=== PATIENT | female | born 1975 | race Caucasian/White ===

== ENCOUNTER 2018-03-05 17:19 | Emergency (ER) | payer BC, SELFPAY ==
[2018-03-05 17:22] VITALS: BP 149/96; PULSE 105; RESP 20; TEMP 37; O2SAT 97; BMI 46.7
--- NOTE | 2018-03-05 17:40 | EKG12_ITS ---
Test Reason : CP Blood Pressure : / mmHG Vent. Rate : 087 BPM Atrial Rate : 087 BPM P-R Int : 146 ms QRS Dur : 076 ms QT Int : 378 ms P-R-T Axes : 055 001 031 degrees QTc Int : 454 ms Normal sinus rhythm Low voltage QRS Borderline ECG Confirmed by SOM MAC, WAYNE ([id number]), editorial specialist TRISTAN DENISE ([id number]) on 03/11/2018 9:16:44 AM Referred By: JONNY Confirmed By:WAYNE KEARNS MD
[2018-03-05] MEDS: Aspirin 81 MG TAB.CHEW 324 MG PO (17:48)
--- NOTE | 2018-03-05 18:00 | RAD_ITS ---
STUDY: X-RAY CHEST REASON FOR EXAM: Female, 42 years old. Chest pain. TECHNIQUE: PA and lateral views of the chest. COMPARISON: March 21, 2015. FINDINGS: Telemetry wires overlie the chest. The lungs are hyperexpanded. There is minimal bibasilar atelectasis. There is no demonstrated pleural abnormality. Normal size heart. Normal mediastinum and edgar. Normal visualized pulmonary arteries. There is atherosclerotic calcification of the aortic arch with tortuosity. Normal visualized thoracic spine. Normal visualized ribs, clavicles, and shoulders. There is no demonstrated abnormality of the visualized soft tissue structures of the upper abdomen. RAD/Chest PA and Lateral IMPRESSION: Limited inspiration with bibasilar atelectasis. There is no other interval change. Electronically Signed: Иван Castillo DO at 18:51 EDT Tel [phone], Service support ,
[2018-03-05 18:13] LABS: Absolute Lymphocyte Count 2.84 X10^3/ul (0.83-4.51); Basophil# 0.07 X10^3/uL; Basophil% 0.6 % (0-1); Eosinophil# 0.45 X10^3/uL; Eosinophils% 3.7 % (0-5); Hematocrit 42.4 % (37-47); Hemoglobin 14.6 g/dl (12.0-15.0); Lymphocyte # 2.84 X10^3/ul (4.0); Lymphocyte % 23.4 % (19-41); Mean Corp Hgb Conc 34.4 g/gl (32-36); Mean Corpuscular Hgb 29.6 pg (27.0-32.0); Mean Corpuscular Volume 85.8 fL (81-99); Mean Platelet Vol. 9.5 fl (6.2-12.0); Monocyte# 0.76 X10^3/uL; Monocyte% 6.3 % (0-10); Neutrophil # 7.96 X10^3/uL (2.7-7.7); Neutrophil % 65.7 % (47-70); Platelet Count 294 K/mm3 (150-450); RBC Distribution Width CV 14.5 % (11.6-14.6); RBC Distribution Width SD 44.6 fl (35.1-43.9); Red Blood Count 4.94 M/mm3 (4.2-5.4); White Blood Count 12.1 K/mm3 (4.4-11.0)
[2018-03-05 18:18] LABS: Differential Indicated SCAN CRITERIA MET; POSITIVE COUNT NO; POSITIVE DIFFERENTIAL NO; POSITIVE MORPHOLOGY YES
[2018-03-05 18:44] LABS: Platelet Estimate ADEQUATE (ADEQ); Red Cell Morphology NORM C+C NORMAL (NORM C&C); Toxic Granulation RARE
[2018-03-05 18:49] LABS: Anion Gap 10 (5-15); BUN 11 mg/dL (7-18); Calcium,Total 8.6 mg/dL (8.5-10.1); Chloride 107 mmol/L (98-107); Creatinine, Serum 0.65 mg/dL (0.55-1.02); D-Dimer Quantitative (DVT/PE) < 0.27 FEU/ug/m (0.27-0.49); EST Glomerular Filtration Rate 107 mL/min (>60); Est Glom Filt Rate - Afr Amer 130 mL/min (>60); Estimated Creatinine Clearance 94.22 ml/min; Glucose 96 mg/dL (74-106); Potassium 3.7 mmol/L (3.5-5.1); Sodium Level 139 mmol/L (136-145)
[2018-03-05 19:11] VITALS: PULSE 80; RESP 17; O2SAT 96
--- NOTE | 2018-03-05 19:13 | ED.VISSUMM ---
- ER Visit Summary Date of Service: 03/05/18 Chief Complaint: Shortness of breath and palpitations History of Present Illness: The patient is a 42 F presenting for evaluation secondary to shortness of breath and palpitations. Patient reports that over the course last 2 days she has had the above symptoms. Patient reports that she has had a sore throat for about a week, and she stated that she was having a progressive increase in her anxiety until yesterday she had an explosive episode with her family where she was screaming and yelling at them. Patient reports that she had a gradual onset after that of dizziness that she describes as unsteadiness as well as bilateral neck tightness, bilateral headache. Patient reports that this is also been associated with left shoulder and arm pain. She denies that she has any sort of visual changes numbness or weakness associated with this. Patient does endorse that she has had a mild runny nose, but denies significant cough. Shortness of breath does not have any sort of exacerbating relieving factors nor does the headache. Headache was gradual on onset, not described as thunderclap. Review of systems otherwise negative. Physical Examination: Vital signs are notable for a heart rate of 105. Obese female no acute distress. Head normocephalic atraumatic, no temporal artery tenderness. PRL, EOMI no evidence of nystagmus. Moist mucous membranes, oropharynx is clear. Neck was supple no lymphadenopathy no JVD no carotid bruits are noted. Heart was regular rate and rhythm on my exam with a heart rate of 90 no evidence of murmurs normal S1 and S2. Lungs sounds clear. Abdomen soft nontender. Peripheral pulses 2+?4, no peripheral edema, skin normal color no rash. Patient was alert and oriented cranial nerves were intact, normal strength and sensation were noted. Test Results: EKG demonstrates a sinus rate of [address] segments and normal T waves. CBC shows a mild leukocytosis of 12, chemistry unremarkable, troponin negative, d-dimer completely negative, chest x-ray shows normal-sized mediastinum and no evidence of acute pathology. Emergency Department Course and Treatment: Patient presented for evaluation secondary to shortness of breath palpitations headaches neck tightness and some dizziness. Patient's evaluation is negative as noted above. I did consider the possibility of dissection in this patient given her constellation of symptoms but I believe this to be an unlikely presentation of this as she has bilateral neck pain with no bruits and a negative d-dimer. Likewise she does not seem to have any sort of pulmonary or cardiac etiology for this. Patient will be given a course of meclizine for treatment of her dizziness. She was recommended on decongestants as she potentially has an element of an upper respiratory infection that is contributing to this. She was encouraged to follow-up with primary care, she understands signs and symptoms which to return to the emergency department. Disposition: Discharge Impression: 1. Vertigo 2. Cephalgia 3. URI This note was generated with [employer] dictation software. It may contain incorrect words, spelling, and punctuation that were not noted in review of the chart prior to signing ED Disposition - Plan for ED Patient: Disposition: Home or Assisted Living Chief Complaint: Shortness of Breath Diagnosis: Vertigo, Cephalgia, URI (upper respiratory infection) Instructions: ED Upper Resp Infec No Abx Tx Prescriptions: Meclizine HCl 25 mg PO TID #15 tab.chew Referrals: Arnulfo Vaughn MD [Primary Care Provider] - 3-5 Days
--- NOTE | 2018-03-05 19:17 | ED.DCSUM_ITS ---
- ER Visit Summary Date of Service: 03/05/18 Chief Complaint: Shortness of breath and palpitations History of Present Illness: The patient is a 42 F presenting for evaluation secondary to shortness of breath and palpitations. Patient reports that over the course last 2 days she has had the above symptoms. Patient reports that she has had a sore throat for about a week, and she stated that she was having a progressive increase in her anxiety until yesterday she had an explosive episode with her family where she was screaming and yelling at them. Patient reports that she had a gradual onset after that of dizziness that she describes as unsteadiness as well as bilateral neck tightness, bilateral headache. Patient reports that this is also been associated with left shoulder and arm pain. She denies that she has any sort of visual changes numbness or weakness associated with this. Patient does endorse that she has had a mild runny nose, but denies significant cough. Shortness of breath does not have any sort of exacerbating relieving factors nor does the headache. Headache was gradual on onset, not described as thunderclap. Review of systems otherwise negative. Physical Examination: Vital signs are notable for a heart rate of 105. Obese female no acute distress. Head normocephalic atraumatic, no temporal artery tenderness. PRL, EOMI no evidence of nystagmus. Moist mucous membranes, oropharynx is clear. Neck was supple no lymphadenopathy no JVD no carotid bruits are noted. Heart was regular rate and rhythm on my exam with a heart rate of 90 no evidence of murmurs normal S1 and S2. Lungs sounds clear. Abdomen soft nontender. Peripheral pulses 2+?4, no peripheral edema, skin normal color no rash. Patient was alert and oriented cranial nerves were intact , normal strength and sensation were noted. Test Results: EKG demonstrates a sinus rate of [address] segments and normal T waves. CBC shows a mild leukocytosis of 12, chemistry unremarkable , troponin negative, d-dimer completely negative, chest x-ray shows normal- sized mediastinum and no evidence of acute pathology. Emergency Department Course and Treatment: Patient presented for evaluation secondary to shortness of breath palpitations headaches neck tightness and some dizziness. Patient's evaluation is negative as noted above. I did consider the possibility of dissection in this patient given her constellation of symptoms but I believe this to be an unlikely presentation of this as she has bilateral neck pain with no bruits and a negative d-dimer. Likewise she does not seem to have any sort of pulmonary or cardiac etiology for this. Patient will be given a course of meclizine for treatment of her dizziness. She was recommended on decongestants as she potentially has an element of an upper respiratory infection that is contributing to this. She was encouraged to follow-up with primary care, she understands signs and symptoms which to return to the emergency department. Disposition: Discharge Impression: 1. Vertigo 2. Cephalgia 3. URI This note was generated with [employer] dictation software. It may contain incorrect words, spelling, and punctuation that were not noted in review of the chart prior to signing ED Disposition - Plan for ED Patient: Disposition: Home or Assisted Living Chief Complaint: Shortness of Breath Diagnosis: Vertigo, Cephalgia, URI (upper respiratory infection) Instructions: ED Upper Resp Infec No Abx Tx Prescriptions: Meclizine HCl 25 mg PO TID #15 tab.chew Referrals: Arnulfo Vaughn MD [Primary Care Provider] - 3-5 Days
[2018-03-05] MEDS: Meclizine HCl 25 MG Tablet PO (19:23)
== END 2018-03-05 19:29 | disposition home or self-care (01) ==
PROVIDERS: Emergency Provider Emergency Medicine; Family Provider Internal Medicine; PCP Internal Medicine
DX: R42 Dizziness and giddiness (principal); R51 Headache; J06.9 Acute upper respiratory infection, unspecified; E66.9 Obesity, unspecified; K21.9 Gastro-esophageal reflux disease without esophagitis; Z87.891 Personal history of nicotine dependence
CPT/HCPCS: 71046; 80048; 84484; 85025; 85379; 93005; 99285; A4216

== ENCOUNTER 2018-06-10 11:11 | Emergency (ER) | payer BC, SELFPAY ==
[2018-06-10 11:12] VITALS: PULSE 115; RESP 20; TEMP 36.6; O2SAT 96; BMI 47.6
--- NOTE | 2018-06-10 11:31 | CT_ITS ---
STUDY: CT ABDOMEN AND PELVIS WITHOUT CONTRAST REASON FOR EXAM: Female, 42 years old. RADIATION DOSAGE (If Supplied By Facility): CTDIvol = ( 20.77 ) mGy, DLP = ( 1110.43 ) mGycm TECHNIQUE: Transaxial images were obtained from the dome of the diaphragm to the symphysis pubis without oral contrast, and without intravenous contrast. Sagittal and coronal images were reconstructed. Individualized dose optimization techniques were used for this CT. COMPARISON: None. FINDINGS: The visualized lung bases are unremarkable. The visualized portions of the heart are within normal limits. Normal liver in size and attenuation. The gallbladder is absent no dilatation of the infrarenal or extrahepatic biliary system. The pancreas and spleen are unremarkable. Normal bilateral adrenal glands. Normal right kidney. Normal left kidney. No evidence of stone formation or hydronephrosis. Normal visualized stomach. Normal small intestine. Normal colon. The appendix is is absent. Normal abdominal aorta. Normal inferior vena cava. Normal retroperitoneum. Normal urinary bladder. Normal abdominal wall. There is evidence of spondylolysis at the level of L5 with second degree spondylolisthesis of L5 on S1 where there is narrowing of the disc space and sclerosis of the endplates CT/Abdomen/Pelvis without Cont IMPRESSION: Negative study. 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 Electronically Signed: Nayeli Loaiza, at 12:40 EST Tel , Service support ,
[2018-06-10] MEDS: Ondansetron 4 MG/2 ML Vial IV (11:41)
[2018-06-10] MEDS: Morphine 4 MG/ML Syringe IV ×2 (11:41→13:14)
[2018-06-10] MEDS: Ketorolac 30 MG/ML Syringe IV (11:41)
[2018-06-10] MEDS: 0.9% Normal Saline 1,000 ML 125 ML IV (11:46)
[2018-06-10 11:58] LABS: Absolute Lymphocyte Count 2.05 X10^3/ul (0.83-4.51); Absolute Neutrophil Count 5.9 X10^3/uL (2.0-7.7); Basophil# 0.03 X10^3/uL; Basophil% 0.3 % (0-1); Eosinophil# 0.22 X10^3/uL; Eosinophils% 2.5 % (0-5); Hematocrit 43.4 % (37-47); Hemoglobin 14.6 g/dl (12.0-15.0); Lymphocyte # 2.05 X10^3/ul (4.0); Lymphocyte % 23.3 % (19-41); Mean Corp Hgb Conc 33.6 g/gl (32-36); Mean Corpuscular Hgb 29.1 pg (27.0-32.0); Mean Corpuscular Volume 86.6 fL (81-99); Monocyte# 0.55 X10^3/uL; Monocyte% 6.3 % (0-10); Neutrophil # 5.93 X10^3/uL (2.7-7.7); Neutrophil % 67.5 % (47-70); POSITIVE COUNT NO; POSITIVE DIFFERENTIAL NO; POSITIVE MORPHOLOGY NO; Platelet Count 305 K/mm3 (150-450); RBC Distribution Width CV 13.9 % (11.6-14.6); RBC Distribution Width SD 43.8 fl (35.1-43.9); Red Blood Count 5.01 M/mm3 (4.2-5.4); White Blood Count 8.8 K/mm3 (4.4-11.0)
--- NOTE | 2018-06-10 12:00 | ED.DCSUM_ITS ---
- ER Visit Summary Date of Service: 06/10/18 Chief Complaint: [Left flank pain] History of Present Illness: The patient is a 42 F [presents to the emergency department complaint of pain that started suddenly about half an hour ago. Patient describes nausea with it. Patient complains of urinary frequency but only getting small amounts of urine out at the time. Patient is never had pain like this before. Patient rates the pain a 10 out of 10. She denies any fevers. She denies any trauma to her back. Patient was riding in a car when the pain started.] Patient states that they had some small bumps in the road and afterwards she developed the pain. Physical Examination: [HEENT-PERRLA, EOMI. Cranial nerves II through XII grossly intact. TMs clear. Mucous membranes moist. No adenopathy. Cardiovascular-regular rate and rhythm without murmur or ectopy Lungs-clear to auscultation, chest wall stable without crepitus or subcu emphysema Abdomen-normoactive bowel sounds, soft. Patient has tenderness palpation over the left lower quadrant and left flank. No rebound, rigidity, or perineal signs. Extremities-intact ?4, normal range of motion, normal pulses, atraumatic] Test Results: [CBC with differential obtained was normal. Chemistries were normal. Urinalysis was normal. CT flank showed degenerative disc disease otherwise nothing acute. No evidence of urolithiasis.] Emergency Department Course and Treatment: [Patient was medicated with morphine, Toradol, and Zofran. Patient initially had good pain relief but then her pain started to come back and she was given 4 more milligrams of morphine.] Treatment Plan: [Patient will be given a prescription for Flexeril, Naprosyn, and [place] for pain. I suspect pain may be more muscle spasm.] Disposition: [Discharged home in stable condition] Impression: [Back pain-atraumatic] This note was generated with [employer] dictation software. It may contain incorrect words, spelling, and punctuation that were not noted in review of the chart prior to signing ED Disposition - Plan for ED Patient: Chief Complaint: Flank Pain Referrals: Arnulfo Vaughn MD [Primary Care Provider] -
[2018-06-10 12:12] LABS: Anion Gap 9 (5-15); BUN 12 mg/dL (7-18); BUN/Creat Ratio 15.9 RATIO (10-20); Calcium,Total 8.6 mg/dL (8.5-10.1); Chloride 105 mmol/L (98-107); Creatinine, Serum 0.75 mg/dL (0.55-1.02); EST Glomerular Filtration Rate 90 mL/min (>60); Est Glom Filt Rate - Afr Amer 109 mL/min (>60); Estimated Creatinine Clearance 81.66 ml/min; Glucose 104 mg/dL (74-106); Potassium 3.7 mmol/L (3.5-5.1); Sodium Level 139 mmol/L (136-145)
[2018-06-10 12:45] LABS: Bacteria 0 SEEN /hpf (None Seen); Mucous, Urine 0 SEEN /hpf (<or=2+); Red Blood Cells-Urine 0 SEEN /hpf (0-5); White Blood Cells 0 SEEN /hpf (0-5)
[2018-06-10 12:48] LABS: Color, Urine Yellow (Yellow); Glucose, Dipstick Normal (Normal); Ketone-Dipstick Negative (Negative); Leukocyte Esterase-Dipstick Negative /ul (Negative); Nitrite-Dipstick Negative (Negative); Occult Blood-Urine Negative /ul (Negative); Protein-Dipstick Negative (Negative); Specific Gravity, Urine 1.005 (1.002-1.030); Urine Bilirubin Dipstick Negative (Negative); Urine Clarity Clear (Clear); Urine Urobilinogen Normal (Normal)
[2018-06-10 12:56] LABS: Squamous Epithelial Cells - UA 0-5 SEEN /hpf (5-10)
[2018-06-10 13:03] VITALS: BP 123/77; PULSE 76; RESP 16; O2SAT 96
--- NOTE | 2018-06-10 13:07 | DCINST.ED_ITS ---
ED Disposition - Plan for ED Patient: Chief Complaint: Flank Pain Instructions: ED Flank Pain Uncertain Cause, ED Neck Back Pain General Prescriptions: Hydrocodone Bitart/Apap 5-325 [[place] 5MG-325MG] 1 tab PO Q4H PRN PRN 2 Days #10 tab PRN Reason: Pain Naproxen [Naprosyn] 500 mg PO BID PRN #20 tab Cyclobenzaprine [Flexeril] 10 mg PO TID PRN #20 tab PRN Reason: Muscle Spasm Referrals: Arnulfo Vaughn MD [Primary Care Provider] - 5-7 Days
== END 2018-06-10 13:26 | disposition home or self-care (01) ==
PROVIDERS: Emergency Provider Emergency Medicine; Family Provider Internal Medicine; PCP Internal Medicine
DX: R10.9 Unspecified abdominal pain (principal); M54.9 Dorsalgia, unspecified; R11.0 Nausea
CPT/HCPCS: 74176; 80048; 81001; 85025; 96361; 96374; 96375; 96376; 99283; J7030; A4216; J2405

== ENCOUNTER 2018-10-12 19:54 | Emergency (ER) | payer BC, SELFPAY ==
[2018-10-12 19:54] VITALS: BP 135/93; PULSE 109; RESP 18; TEMP 36.9; O2SAT 95; BMI 49.9
[2018-10-12] MEDS: Morphine 4 MG/ML Syringe IV (20:38)
[2018-10-12] MEDS: diazePAM 5 MG Tablet 2.5 MG PO (20:38)
[2018-10-12] MEDS: Ondansetron 4 MG/2 ML Vial IV (20:38)
[2018-10-12 20:42] VITALS: BP 140/92; PULSE 95; RESP 18; O2SAT 95
[2018-10-12] MEDS: HYDROmorphone 1 MG/ML Syringe IV (21:44)
[2018-10-12 21:50] VITALS: BP 103/64; PULSE 91; RESP 95; O2SAT 2
--- NOTE | 2018-10-12 23:05 | ED.VISSUMM ---
- ER Visit Summary Date of Service: 10/12/18 Chief Complaint: Back pain History of Present Illness: The patient is a 42 F with history of chronic back pain. She felt a pop in her back when laying back into bed tonight and now has worsened pain. She had an injection in her back approximately 2 weeks ago. Recent x-rays revealed a 2/4 spondylolisthesis of L5 on S1. Tonight she has noted some tingling in her left leg below her knee. She states she had this in the past after she gets injections. There is no fall or direct trauma to her back tonight. Patient was brought in by EMS and had received 50 mcg of fentanyl prior to her arrival. Physical Examination: Vital signs remarkable only for heart rate of 109. Patient lying in bed. She is in no acute distress. Heart is regular rate and rhythm. Lung sounds are clear. Abdomen is soft nontender. Patient rolls to her side and back examination reveals tenderness in the lumbar spine region as well as in the bilateral paraspinals. Lower extremity examination reveals 1+ bilateral patellar reflexes. She has decreased sensation to light touch on the left leg below the knee only. She has good strength and strong distal pulses. Test Results: [] Emergency Department Course and Treatment: Patient received morphine, Zofran, and Valium. She then received a dose of Dilaudid. At this time patient states she is resting comfortably. She will be given a prescription for Percocet at home. She has Flexeril at home that she will use. She will call her back specialist tomorrow. Treatment Plan: [] Disposition: Discharge Impression: Acute back strain with muscle spasm This note was generated with [employer] dictation software. It may contain incorrect words, spelling, and punctuation that were not noted in review of the chart prior to signing ED Disposition - Plan for ED Patient: Disposition: Home or Assisted Living Instructions: ED Sprain Strain Lumbar Prescriptions: Oxycodone HCl/Acetaminophen [Percocet 5/325] 1 tablet PO Q6H PRN PRN 3 Days #12 tablet PRN Reason: Pain Referrals: Arnulfo Vaughn MD [Primary Care Provider] - Additional Instructions: Follow-up with your back doctor as discussed.
[2018-10-12] MEDS: oxyCODONE 5 MG Tablet PO (23:25)
[2018-10-12 23:27] VITALS: BP 123/87; PULSE 94; RESP 16; O2SAT 96
== END 2018-10-12 23:36 | disposition home or self-care (01) ==
PROVIDERS: Emergency Provider Emergency Medicine; Family Provider Internal Medicine; PCP Internal Medicine
DX: M62.830 Muscle spasm of back (principal); S39.012A Strain of muscle, fascia and tendon of lower back, initial encounter; X58.XXXA Exposure to other specified factors, initial encounter; Y93.9 Activity, unspecified; Y92.003 Bedroom of unspecified non-institutional (private) residence as the place of occurrence of the external cause; Y99.9 Unspecified external cause status; K21.9 Gastro-esophageal reflux disease without esophagitis; Z87.891 Personal history of nicotine dependence
CPT/HCPCS: 96374; 96375; 99284; J7030; A4216; J2405

== ENCOUNTER 2019-03-10 15:37 | Emergency (ER) | payer BC, SELFPAY ==
[2019-03-10 15:38] VITALS: BP 165/111; PULSE 118; RESP 20; TEMP 36.6; O2SAT 98; BMI 51.2
--- NOTE | 2019-03-10 15:54 | ED.VISSUMM ---
- ER Visit Summary Date of Service: 03/10/19 Chief Complaint: [Pain to right calf] History of Present Illness: The patient is a 43 F [the emergency department with pain to her right calf. Patient states that approximately noon she was on her toes cleaning when she felt a pop in her right calf and has been unable to bear weight since. Patient complains of pain radiating to her foot and all the way up to her hip. Not been on antibiotics recently.] Physical Examination: [HEENT-PERRLA, EOMI. Cranial nerves II through XII grossly intact. TMs clear. Mucous membranes moist. No adenopathy. Cardiovascular-regular rate and rhythm without murmur or ectopy Lungs-clear to auscultation, chest wall stable without crepitus or subcu emphysema Abdomen-normoactive bowel sounds, soft, nontender, no rebound or rigidity, no peritoneal signs. Extremities-intact ?4, normal range of motion, normal pulses, atraumatic. Right calf-patient has diffuse tenderness over the calf mostly the distal portion. No deformity noted in the Achilles tendon. Patient has a normal Bahena's test. She is neurovascular intact distally. There is no ecchymosis or bruising noted. No bony tenderness over the tibia or fibula.] Test Results: [None indicated] Emergency Department Course and Treatment: [Will be given a walking boot and crutches.] Treatment Plan: [Given referral to orthopedics for follow-up. Patient given a prescription for [place] for severe pain.] Disposition: [Discharged home in stable condition] Impression: [Right calf strain-possible tear] This note was generated with [employer] dictation software. It may contain incorrect words, spelling, and punctuation that were not noted in review of the chart prior to signing ED Disposition - Plan for ED Patient: Referrals: Arnulfo Vaughn MD [Primary Care Provider] -
--- NOTE | 2019-03-10 15:56 | DCINST.ED_ITS ---
ED Disposition - Plan for ED Patient: Instructions: MUSCLE STRAIN, Extremity Prescriptions: Hydrocodone Bitart/Apap 5-325 [[place] 5MG-325MG] 1 tab PO Q4H PRN PRN 2 Days #10 tab PRN Reason: Pain Prescription Printed Referrals: Arnulfo Vaughn MD [Primary Care Provider] - Kelle Lopez DO [STAFF PHYSICIAN] - 3-5 Days
== END 2019-03-10 17:18 | disposition home or self-care (01) ==
LOC: ED 16:00
PROVIDERS: Emergency Provider Emergency Medicine; Family Provider Internal Medicine; PCP Internal Medicine
DX: S86.111A Strain of other muscle(s) and tendon(s) of posterior muscle group at lower leg level, right leg, initial encounter (principal); X50.9XXA Other and unspecified overexertion or strenuous movements or postures, initial encounter; Y93.E9 Activity, other interior property and clothing maintenance; Y92.9 Unspecified place or not applicable; Y99.9 Unspecified external cause status
CPT/HCPCS: 99283

== ENCOUNTER 2019-11-30 11:21 | Emergency (ER) | payer BC, SELFPAY ==
[2019-11-30 11:22] VITALS: BP 140/100; PULSE 116; RESP 16; TEMP 37.1; O2SAT 95; BMI 53.9
--- NOTE | 2019-11-30 11:32 | ED.RN ---
PT HAS MULTIPLE COMPLAINTS, HEADACHE, FEELS LIKE MY HEAD IS GOING TO EXPLODE, JOINTS ARE TOO BIG. PAIN ALL OVER.
--- NOTE | 2019-11-30 11:38 | ED.DCSUM_ITS ---
History of Present Illness Chief Complaint: Dizziness Informant: Patient Narrative: Patient states that today she woke up with generalized pain in her joints muscles neck and head. She notes some light sensitivity. She states that she is having dizziness and feels drunk. She states that she started Lamictal recently and took her second dose last night. No fevers or rashes. No vomiting or diarrhea but she does feel nauseated. She states she has had migraines in the past but this feels different. When I asked her if she is having generalized pain she states that it is worse than pain but she does not know what the call it. Past Medical History - Allergies and Home Meds Allergies/Adverse Reactions: Allergies codeine Allergy (Verified 11/30/19 11:25) Hives Only when codeine is mixed with cough syurpe Penicillins Allergy (Verified 11/30/19 11:25) Hives [place] Allergy (Uncoded 11/30/19 11:25) Hives Primary Care Physician: Arnulfo Vaughn MD [Primary Care Provider] - Surgical History: noncontributory Smoking Status: Former smoker - Family History Maternal Family History: Reports: No pertinent history Paternal Family History: Reports: No pertinent history Review of Systems General: Denies: Chills, Fever, Sweats Eyes: Reports: - - Light sensitivity. Denies: Visual changes - bilaterally, Diplopia ENT: Denies: Rhinorrhea, Sore throat Cardiovascular: Denies: Chest pain, Palpitations Respiratory: Denies: Dyspnea, Cough, Dyspnea on exertion Gastrointestinal: Reports: Nausea. Denies: Abdominal pain, Vomiting, Diarrhea, Melena, Hematochezia Genitourinary: Denies: Dysuria, Hematuria, Frequency Musculoskeletal: Reports: Myalgias, Arthralgias, Neck pain, Back pain. Denies: Extremity Pain Skin: Denies: Rash, Wounds Neurological: Reports: Headache. Denies: Weakness, Numbness Physical Exam Vital Signs/Narrative: Vital Signs Temp Pulse Resp BP Pulse Ox 11/30/19 11:22 98.7 F 116 H 16 140/100 H 95 Inital Vital Signs reviewed: Yes General: Well nourished, Well developed, Obese, No Acute Distress Head: Normocephalic, Atraumatic Eyes: Perrl, EOMI, - - Light sensitivity ENT: Moist mucous membranes, No rhinorrhea Neck: Supple, Nontender Cardiovascular: Regular rate, Regular rhythm, No murmurs Respiratory: No distress, CTA bilaterally, Chest nontender Abdomen: Soft, Nontender, Nondistended, Normal bowel sounds Back: Nontender, Normal Inspection Extremities: Nontender, No edema Skin: Normal color, No rash Neurological: Alert, Oriented x3, Cranial nerves II-XII grossly intact, Normal Strength, Normal Sensation Psychological: - - Very dramatic affect Diagnostic/Tx/Re-eval Clinical Impression(s) from Imaging Studies Brain CT 11/30/19 11:38 IMPRESSION: No acute intracranial abnormality is seen. Partial opacification of the ethmoid sinuses bilaterally. Electronically Signed: Darshan Patton, at 12:14 EDT , Service support , - Medical Decision Making The patient received Toradol Compazine and Benadryl. She is feeling better on repeat examination. She still has light sensitivity. I do not know if this is an atypical migraine for her I suppose it is possible this could be medication reaction. I would recommend her discussing this with her psychiatrist before fi nalizing a decision on the medication. I will write for a few Toradol and Zofran at home. Return if worsening or concerns ED Disposition - Plan for ED Patient: Disposition: Home or Assisted Living Diagnosis: Headache, Myalgia, Dizziness Instructions: ED Acute Pain [facility] Prescriptions: Ketorolac [Toradol] 10 mg PO TID PRN PRN 3 Days #9 tab PRN Reason: pain Transmission Status: Pending to [id number] Ondansetron [Zofran Odt] 4 mg PO Q6H PRN PRN #10 tab PRN Reason: Nausea Transmission Status: Pending to [id number] Referrals: Arnulfo Vaughn MD [Primary Care Provider] - 3-5 Days
--- NOTE | 2019-11-30 11:38 | CT_ITS ---
STUDY: CT BRAIN WITHOUT CONTRAST REASON FOR EXAM: Female, 44 years old. HEAD, NECK AND EAR PAIN, DIZZINESS, LIGHT SENSITIVITY RADIATION DOSAGE (If Supplied By Facility): CTDIvol = ( 44.99 ) mGy, DLP = ( 779.24 ) mGycm TECHNIQUE: Transaxial CT imaging of the brain was performed without administration of intravenous contrast material. Individualized dose optimization techniques were used for this CT. COMPARISON: No relevant priors. FINDINGS: Normal soft tissue structures. Normal calvarium. Normal size ventricles and extra-axial spaces for the patient''s age. Normal white matter tracts of the cerebral hemispheres. Normal basal ganglia and thalami. Normal brainstem. Normal cerebellum. There is no intracranial hemorrhage. There are no findings of an acute ischemic infarction. Partial opacification of the ethmoid sinuses bilaterally. CT/Brain/Head without Contrast IMPRESSION: No acute intracranial abnormality is seen. Partial opacification of the ethmoid sinuses bilaterally. Electronically Signed: Darshan Patton, at 12:14 EDT , Service support ,
[2019-11-30] MEDS: proCHLORPERazine 10 MG/2 ML Vial IV (11:51)
[2019-11-30] MEDS: 0.9% Normal Saline 1,000 ML 999 ML IV (11:51)
[2019-11-30] MEDS: Ketorolac 30 MG/ML Syringe IV (11:53)
[2019-11-30] MEDS: DiphenhydrAMINE 50 MG/ML Syringe IV (11:53)
[2019-11-30 13:33] VITALS: BP 114/77; PULSE 71; RESP 18; O2SAT 99
== END 2019-11-30 13:34 | disposition home or self-care (01) ==
PROVIDERS: Emergency Provider Emergency Medicine; PCP Internal Medicine
DX: R42 Dizziness and giddiness (principal); R51 Headache; M79.10 Myalgia, unspecified site; E66.9 Obesity, unspecified; Z87.891 Personal history of nicotine dependence; Z88.0 Allergy status to penicillin
CPT/HCPCS: 70450; 96361; 96374; 96375; 99283; J7030

== ENCOUNTER → 2020-05-04 10:21 | Outpatient (CLI) | payer BC, SELFPAY | PROVIDERS: PCP Internal Medicine; Referring Provider Nurse Practitioner; Visit Provider Nurse Practitioner | DX: U07.1 COVID-19 (principal) | CPT/HCPCS: 87635; C9803; U0003 ==

== ENCOUNTER 2021-02-16 10:18 | Emergency (ER) | payer BC, SELFPAY ==
[2021-02-16 10:19] VITALS: BP 131/85; PULSE 100; RESP 20; TEMP 36.3; BMI 49.1
--- NOTE | 2021-02-16 12:15 | EDS_ITS ---
HPI History of Present Illness Chief Complaint: General Illness Narrative Narrative: 45-year-old female presenting for IV fluids secondary to decreased p.o. intake. Patient states she had gastric sleeve performed [address] Durán at [facility]. She also states she had a hiatal hernia repair. She states she was told that she would feel full after eating and drinking. Patient states she is able to get some warm food and fluids into her stomach but anything room temperature or cold she cannot tolerate. She feels early satiety. Patient has not had nausea or vomiting. She is having bowel movements. She denies feeling ill, having fevers, chills. She does admit to decreased urinary output. Patient was told by [facility] to come to the ER for IV fluids because they could not arrange outpatient fluids. She states that she does not have significant abdominal pain. [facility] Medical History Cholecystectomy planned Home Medications omeprazole 20 mg PO DAILY 03/21/15 [History Last Taken 09/30/16] albuterol sulfate [ProAir HFA] 1 puff INHALATION Q4H PRN PRN 03/22/15 [History Last Taken 03/09/15 22:00] mometasone [Nasonex] 1 spray NASAL DAILY PRN 03/22/15 [History Last Taken 03/19/15 22:00] epinephrine 0.3 mg IM X1 09/30/16 [History Last Taken Unknown] diphenhydramine HCl [Benadryl] 25 mg PO BID PRN PRN #20 capsule 10/01/16 [Rx Last Taken Unknown] azelastine 1 spray NASAL BID 10/12/18 [History Last Taken Unknown] bupropion HCl [Wellbutrin Xl] 150 mg PO DAILY 10/12/18 [History Last Taken Unknown] fluticasone propion-salmeterol [Advair 100-50 Diskus] 1 ea IH BID 10/12/18 [History Last Taken Unknown] levocetirizine 5 mg PO DAILY 10/12/18 [History Last Taken Unknown] paroxetine HCl 20 mg PO DAILY 10/12/18 [History Last Taken Unknown] triamterene-hydrochlorothiazid [Maxzide 37.5 mg-25 mg Tablet] 1 tab PO DAILY 10/12/18 [History Last Taken Unknown] gabapentin 300 mg PO TID 11/30/19 [History Last Taken Unknown] lamotrigine 25 mg PO DAILY 11/30/19 [History Last Taken Unknown] meloxicam 15 mg PO DAILY 11/30/19 [History Last Taken Unknown] methocarbamol 750 mg PO BID 11/30/19 [History Last Taken Unknown] ondansetron 4 mg PO Q6H PRN PRN #10 tab 11/30/19 [Rx Last Taken Unknown] Allergy/AdvReac Type Severity Reaction Status Date / Time codeine Allergy Hives Verified 11/30/19 11:25 Penicillins Allergy Hives Verified 11/30/19 11:25 NAL[place]ON Allergy Hives Uncoded 11/30/19 11:25 Surgical History Bariatric surgery status Social History Smoking Status: Unknown if ever smoked ROS ROS ED Constitutional Constitutional ED: Denies chills, fever(s) or sweats Eyes Eyes: Denies blurry vision or diplopia ENT ENT ED: Denies rhinorrhea or sore throat Cardiovascular Cardiovascular: Denies chest pain or palpitations Respiratory/Chest Respiratory/Chest: Denies cough or dyspnea Gastrointestinal Gastrointestinal: Reports other Details: Early satiety ; Denies nausea or vomiting Genitourinary Genitourinary ED: Reports other Details: Decreased urine output ; Denies dysuria or hematuria Musculoskeletal Musculoskeletal: Denies arthralgias or myalgias Integumentary Denies Abrasions or rash Neurologic Neurologic: Denies headache(s) or paresthesias EXAM Physical Exam Const Vital Signs: 02/16/21 10:19 02/16/21 12:17 02/16/21 14:08 Temperature 97.3 F L Temperature Source Temporal Pulse Rate 100 73 Respiratory Rate 20 H Respiratory Effort Normal Non-Labored Respiratory Pattern Normal Blood Pressure 131/85 H 124/77 H Blood Pressure Mean 100 92 Positive well nourished General Appearance ED: NAD HEENT Reports moist mucous membranes Negative for trauma Eyes PERRL and EOMs intact bilaterally General Eye ED: Negative for pale conjunctiva or scleral icterus Resp normal respiratory effort and clear to auscultation bilaterally Cardio regular rate and regular rhythm GI GI Narrative: Very mild tenderness to palpation over surgical incision site in the right lower abdomen. Abdomen is otherwise soft. Nonperitoneal. Extremity normal to inspection Neuro oriented x3 and CN's II-XII intact bilaterally Sensorium / Orientation: alert Psych mental status grossly normal MDM MDM MDM Narrative Medical decision making narrative: I will check basic lab work as well as give the patient IV fluids. She does not wish to have anything for nausea or pain w hile in the ED. Based on her abdominal exam if her lab work looks normal I do not believe she needs any imaging. Patient's blood work is normal. She is not dehydrated. She is given 2 L of IV fluids. At this point I will discharge her home to follow-up with her surgeon as needed. She can return precautions. Impression: 1. Dehydration Lab Data Attestation: I reviewed the patient's lab results. Labs: Laboratory Results - last 24 hr 02/16/21 02/16/21 11:55 11:55 WBC 7.8 RBC 4.94 Hgb 14.5 Hct 44.1 MCV 89.3 MCH 29.4 MCHC 32.9 RDW Std Deviation 45.6 H RDW Coeff of Rochelle 14.1 Plt Count 327 MPV 10.2 Immature Gran % (Auto) 0.300 Neut % (Auto) 61.3 Lymph % (Auto) 26.0 [place] % (Auto) 6.3 Eos % (Auto) 5.2 H Baso % (Auto) 0.9 Absolute Neuts (auto) 4.8 Absolute Lymphs (auto) 2.02 Nucleated RBC % 0 Sodium 139 Potassium 3.6 Chloride 105 Carbon Dioxide 28.0 Anion Gap 6 BUN 8 Creatinine 0.60 Estim Creat Clear Calc 94.63 Est GFR (MDRD) Af Amer 139 Est GFR (MDRD) Non-Af 115 BUN/Creatinine Ratio 13.3 Glucose 84 Calcium 8.7 Total Bilirubin 0.50 AST 40 H ALT 102 H Alkaline Phosphatase 83 Total Protein 7.3 Albumin 3.8 Globulin 3.5 Albumin/Globulin Ratio 1.1 Discharge Plan Triage Chief Complaint: General Illness ED Provider: Vaibhav Hawkins Dx/Rx/DC Orders Instructions: Dehydration Prescriptions: No Action omeprazole 20 MG capsule 20 mg PO DAILY RF: 0 mometasone [Nasonex] 1 SPRAY Nasal.Sry 1 spray NASAL DAILY PRN (Reason: Allergies) RF: 0 albuterol sulfate [ProAir HFA] 1 PUFF inhaler 1 puff inhalation Q4H PRN PRN (Reason: Asthma) RF: 0 epinephrine 0.3 MG syringe 0.3 mg IM X1 RF: 0 diphenhydramine HCl [Banophen] 25 MG capsule 25 mg PO BID PRN PRN (Reason: Itching) Qty: 20 RF: 0 paroxetine HCl 20 MG tablet 20 mg PO DAILY RF: 0 triamterene-hydrochlorothiazid [Maxzide-25mg] 1 EACH tablet 1 tab PO DAILY RF: 0 azelastine 1 SPRAY Nasal.Sry 1 spray NASAL BID RF: 0 fluticasone propion-salmeterol [Advair Diskus] 1 EACH Blst.W.Dev 1 ea IH BID RF: 0 bupropion HCl [Wellbutrin XL] 150 MG Tab.Er.24h 150 mg PO DAILY RF: 0 levocetirizine 5 MG tablet 5 mg PO DAILY RF: 0 meloxicam 15 MG tablet 15 mg PO DAILY RF: 0 lamotrigine 25 MG tablet 25 mg PO DAILY RF: 0 methocarbamol 750 MG tablet 750 mg PO BID RF: 0 gabapentin 300 MG capsule 300 mg PO TID RF: 0 ondansetron 4 MG tablet 4 mg PO Q6H PRN PRN (Reason: Nausea) Qty: 10 RF: 0 Primary Care Provider: Arnulfo Vaughn Referrals: Arnulfo Vaughn MD [Primary Care Provider] - Disposition Disposition: Home, Self Care
[2021-02-16] MEDS: 0.9% Normal Saline 1,000 ML 999 ML IV ×2 (12:19→14:14)
[2021-02-16 12:24] LABS: Absolute Lymphocyte Count 2.02 X10^3/uL (0.83-4.51); Absolute Neutrophil Count 4.8 X10^3/uL (2.0-7.7); Basophil# 0.07 X10^3/uL; Basophil% 0.9 % (0-1); Eosinophils% 5.2 % (0-5); Hematocrit 44.1 % (37-47); Hemoglobin 14.5 g/dL (12.0-15.0); Lymphocyte # 2.02 X10^3/ul (0.83-4.51); Mean Corp Hgb Conc 32.9 g/dL (32-36); Mean Corpuscular Hgb 29.4 pg (27.0-32.0); Mean Corpuscular Volume 89.3 fL (81-99); Mean Platelet Vol. 10.2 fl (6.2-12.0); Monocyte# 0.49 X10^3/uL; Monocyte% 6.3 % (0-10); NRBC Flagged by Analyzer 0 % (0-5); Neutrophil # 4.76 X10^3/uL (2.7-7.7); Neutrophil % 61.3 % (47-70); Platelet Count 327 K/mm3 (150-450); RBC Distribution Width CV 14.1 % (11.6-14.6); RBC Distribution Width SD 45.6 fl (35.1-43.9); Red Blood Count 4.94 M/mm3 (4.2-5.4); White Blood Count 7.8 K/mm3 (4.4-11.0)
[2021-02-16 12:37] LABS: ALB/GLOB Ratio 1.1 RATIO (0.9-2.4); AST(SGOT) 40 U/L (15-37); Alanine Aminotransfer ALT/SGPT 102 U/L (13-56); Albumin, Serum 3.8 g/dL (3.2-5.0); Alkaline Phosphatase 83 U/L (45-117); Anion Gap 6 (5-15); BUN 8 mg/dL (7-18); BUN/Creat Ratio 13.3 RATIO (10-20); Calcium,Total 8.7 mg/dL (8.5-10.1); Chloride 105 mmol/L (98-107); EST Glomerular Filtration Rate 115 mL/min (>60); Est Glom Filt Rate - Afr Amer 139 mL/min (>60); Estimated Creatinine Clearance 94.63 ml/min; Globulin 3.5 g/dL (2.2-4.2); Glucose 84 mg/dL (74-106); Potassium 3.6 mmol/L (3.5-5.1); Protein, Total 7.3 g/dL (6.4-8.2); Sodium Level 139 mmol/L (136-145)
[2021-02-16 14:08] VITALS: BP 124/77; PULSE 73
== END 2021-02-16 15:12 | disposition home or self-care (01) ==
PROVIDERS: Emergency Provider Student in an Organized Health Care Education/Training Program; PCP Internal Medicine
DX: E86.0 Dehydration (principal); Z98.84 Bariatric surgery status; Z79.1 Long term (current) use of non-steroidal anti-inflammatories (NSAID); Z79.51 Long term (current) use of inhaled steroids
CPT/HCPCS: 80053; 85025; 96360; 96361; 99283; J7030; A4216

== ENCOUNTER 2021-02-23 15:33 | Emergency (ER) | payer BC, SELFPAY ==
[2021-02-23 15:33] VITALS: BP 130/89; PULSE 111; RESP 18; TEMP 36.6; O2SAT 92; BMI 48.1
--- NOTE | 2021-02-23 15:58 | EKG12_ITS ---
Test Reason : CP Blood Pressure : / mmHG Vent. Rate : 110 BPM Atrial Rate : 110 BPM P-R Int : 142 ms QRS Dur : 070 ms QT Int : 316 ms P-R-T Axes : 048 -07 025 degrees QTc Int : 427 ms Sinus tachycardia Nonspecific ST abnormality Poor R wave progression Abnormal ECG Confirmed by BISMARK MAC, RAFFY ([id number]), production editor JOSEPH NELSON ([id number]) on 02/26/2021 2:18:07 PM Referred By: JAMILA Confirmed By:RAFFY SOFIA MD
--- NOTE | 2021-02-23 15:59 | EDS_ITS ---
HPI History of Present Illness Chief Complaint: Chest Pain Detail of Chief Complaint: Is read HPI Informant: patient and spouse/S.O. Onset/Context/Timing Onset: Yesterday Context: Sudden Onset Timing: Continuous and Waxes and wanes Quality: Pleuritic pain Location: Left scapula, central chest Current Severity: Moderate Maximum Severity: Severe Worsened by: Activity Relieved by: Nothing Associated Symptoms Associated Symptoms: Bariatric surgery January 31 at [facility] Narrative Narrative: Patient is a 45-year-old woman who underwent bariatric surgery on January 31 at [facility]. She presents with left pleuritic scapular pain that started last evening. She now complains of central and by anterior chest discomfort. She does have dyspnea at rest and dyspnea with exertion. States it hurts to breathe. She also complains of left leg pain. She has not noticed any discoloration. She has no prior history of PE or DVT. She has history of Covid April 2020. She does have a history of asthma. She states she is on a blood pressure med because of swelling lower extremity. She denies history of diabetes hypercholesterolemia or cardiac disease. She denies any recent ill contacts. Denies fever chills. Does complain of a vertex headache. She does report mild congestion when her throat gets dry. She denies cough. She does report nausea without vomiting diarrhea. She denies urologic symptoms. Prior similar symptoms: No Recent Illness/Hospitalization: Yes [facility] Medical History Cholecystectomy planned Home Medications omeprazole 20 mg PO DAILY 03/21/15 [History Last Taken 09/30/16] albuterol sulfate [ProAir HFA] 1 puff INHALATION Q4H PRN PRN 03/22/15 [History Last Taken 03/09/15 22:00] mometasone [Nasonex] 1 spray NASAL DAILY PRN 03/22/15 [History Last Taken 03/19/15 22:00] epinephrine 0.3 mg IM X1 09/30/16 [History Last Taken Unknown] diphenhydramine HCl [Benadryl] 25 mg PO BID PRN PRN #20 capsule 10/01/16 [Rx Last Taken Unknown] azelastine 1 spray NASAL BID 10/12/18 [History Last Taken Unknown] bupropion HCl [Wellbutrin Xl] 150 mg PO DAILY 10/12/18 [History Last Taken Unknown] fluticasone propion-salmeterol [Advair 100-50 Diskus] 1 ea IH BID 10/12/18 [History Last Taken Unknown] levocetirizine 5 mg PO DAILY 10/12/18 [History Last Taken Unknown] paroxetine HCl 20 mg PO DAILY 10/12/18 [History Last Taken Unknown] triamterene-hydrochlorothiazid [Maxzide 37.5 mg-25 mg Tablet] 1 tab PO DAILY 10/12/18 [History Last Taken Unknown] gabapentin 300 mg PO TID 11/30/19 [History Last Taken Unknown] lamotrigine 25 mg PO DAILY 11/30/19 [History Last Taken Unknown] meloxicam 15 mg PO DAILY 11/30/19 [History Last Taken Unknown] methocarbamol 750 mg PO BID 11/30/19 [History Last Taken Unknown] ondansetron 4 mg PO Q6H PRN PRN #10 tab 11/30/19 [Rx Last Taken Unknown] prednisone 60 mg PO DAILY #15 tablet 02/23/21 [Rx Last Taken Unknown] Allergy/AdvReac Type Severity Reaction Status Date / Time codeine Allergy Hives Verified 02/23/21 15:54 Penicillins Allergy Hives Verified 02/23/21 15:54 N[place]ON Allergy Hives Uncoded 02/23/21 15:54 Surgical History Bariatric surgery status Social History (Updated 02/23/21 @ 16:[address] Goran Cheng MD) household members: spouse Smoking Status: Never smoker alcohol intake: current alcohol intake frequency: holidays/special occasions only substance use type: does not use ROS ROS ED Constitutional Constitutional ED: Reports weight loss; Denies chills, fever(s), subjective or sweats Eyes Eyes: Denies blurry vision, change in vision or diplopia ENT ENT ED: Denies ear pain, rhinorrhea or sore throat Cardiovascular Cardiovascular: Reports chest pain and palpitations; Denies orthopnea, paroxysmal nocturnal dyspnea or racing heartbeat Respiratory/Chest Respiratory/Chest: Reports dyspnea and dyspnea on exertion; Denies cough, orthopnea, paroxysmal nocturnal dyspnea or sputum Gastrointestinal Gastrointestinal: Reports nausea; Denies abdominal pain, constipation, diarrhea or vomiting Genitourinary Genitourinary ED: Denies dysuria, hematuria or urinary frequency Musculoskeletal Musculoskeletal: Reports other Details: Left lower extremity pain and swelling ; Denies arthralgias, back pain, myalgias or neck pain Integumentary Denies rash Neurologic Neurologic: Reports headache(s); Denies paresthesias or weakness Endocrine Endocrinology: Denies polydipsia, polyphagia or polyuria Allergic/Immunologic Allergic/Immunologic ED: Denies urticaria EXAM Physical Exam Const Vital Signs: 02/23/21 15:33 02/23/21 15:57 02/23/21 18:11 Temperature 98 F Temperature Source Temporal Pulse Rate 111 H Respiratory Rate 18 Respiratory Effort Short of Breath Labored Blood Pressure 130/89 H 129/85 H Blood Pressure Mean 102 99 Pulse Ox 92 96 Oxygen Delivery Method Room Air Room Air Positive well nourished, well developed and obese General Appearance ED: well developed and other Patient is tachycardic and tachypneic. ; Negative for cyanotic or diaphoretic Nutritional Appearance: obese HEENT HEENT Narrative: Head is atraumatic normocephalic. Ears are normal. Nares patent. Posterior pharyngeal erythema or exudate. Eyes PERRL and EOMs intact bilaterally General Eye ED: Negative for pale conjunctiva or scleral icterus Neck no lymphadenopathy, supple and no JVD Chest Wall inspection of chest normal Resp No normal respiratory effort and clear to auscultation bilaterally Effort and Inspection: Negative for pain with movement Auscultation: diminished lung sounds Cardio regular rhythm, S1 normal heart sound, S2 normal heart sound and no murmurs Rate: tachycardic GI normal to inspection, nondistended, normoactive bowel sounds and non-tender Palpation: soft Back/Spine no CVA tenderness Cervical Spine: Negative for cervical spine tenderness Thoracic Spine / Upper Back: Negative for thoracic spinal tenderness or paraspinal muscle tenderness Extremity Extremity Narrative: There is pain to palpation distribution of the deep venous system on the left. There is slight swelling. Neuro oriented x3, CN's II-XII intact bilaterally and no sensory deficits noted Sensorium / Orientation: alert Motor Exam: strength 5/5 throughout Psych mental status grossly normal Skin no rashes or lesions noted and no wounds MDM MDM MDM Narrative Medical decision making narrative: Differential diagnosis would include exacerbation of asthma, pneumothorax, pulmonary embolus. Patient's has a high pretest probability for pulmonary embolus. Will obtain CTA and appropriate blood work. To evaluate for right heart strain troponin and BNP was ordered. Patient was treated with prednisone for her pleuritic chest pain. Even though she has had Covid there have been many cases of patients with prior positive Covid test last year who have had positive test this year will obtain a Covid test since she reports symptoms started last evening. Lab Data Attestation: I reviewed the patient's lab results. Labs: Laboratory Results - last 24 hr 02/23/21 02/23/21 02/23/21 16:10 16:10 16:10 WBC 9.7 RBC 5.04 Hgb 14.9 Hct 45.1 MCV 89.5 MCH 29.6 MCHC 33.0 RDW Std Deviation 46.8 H RDW Coeff of Rochelle 14.5 Plt Count 287 MPV 10.0 Immature Gran % (Auto) 0.200 Neut % (Auto) 62.3 Lymph % (Auto) 23.5 [place] % (Auto) 9.7 Eos % (Auto) 3.8 Baso % (Auto) 0.5 Absolute Neuts (auto) 6.0 Absolute Lymphs (auto) 2.27 Nucleated RBC % 0 PT 13.6 INR 1.1 APTT 32.8 Sodium 139 Potassium 3.1 L Chloride 103 Carbon Dioxide 27.0 Anion Gap 9 BUN 9 Creatinine 0.62 Estim Creat Clear Calc 91.58 Est GFR (MDRD) Af Amer 135 Est GFR (MDRD) Non-Af 111 BUN/Creatinine Ratio 14.6 Glucose 101 Lactic Acid Calcium 8.9 Troponin I High Sens 5 B-Natriuretic Peptide 02/23/21 02/23/21 16:10 16:10 WBC RBC Hgb Hct MCV MCH MCHC RDW Std Deviation RDW Coeff of Rochelle Plt Count MPV Immature Gran % (Auto) Neut % (Auto) Lymph % (Auto) [place] % (Auto) Eos % (Auto) Baso % (Auto) Absolute Neuts (auto) Absolute Lymphs (auto) Nucleated RBC % PT INR APTT Sodium Potassium Chloride Carbon Dioxide Anion Gap BUN Creatinine Estim Creat Clear Calc Est GFR (MDRD) Af Amer Est GFR (MDRD) Non-Af BUN/Creatinine Ratio Glucose Lactic Acid 1.3 Calcium Troponin I High Sens B-Natriuretic Peptide 20.5 Radiography Diagnostic Testing: Radiology Impression Chest CTA 02/23/21 17:10 IMPRESSION: 1. No acute findings. No pulmonary embolism or arterial dissection. 2. Small hiatal hernia. Electronically Signed: Laura Caputo MD at 18:22 EDT Tel , Service support , Discharge Plan Triage Chief Complaint: Chest Pain ED Provider: Goran Cheng Dx/Rx/DC Orders Clinical Impression: Chest pain, pleuritic, Acute dyspnea, Sinus tachycardia seen on classroom monitor Instructions: ED Dyspnea, ED Pleurisy Prescriptions: New prednisone 20 MG tablet 60 mg PO DAILY Qty: 15 RF: 0 No Action omeprazole 20 MG capsule 20 mg PO DAILY RF: 0 mometasone [Nasonex] 1 SPRAY spray,non-aerosol 1 spray NASAL DAILY PRN (Reason: Allergies) RF: 0 albuterol sulfate [ProAir HFA] 1 PUFF inhaler 1 puff inhalation Q4H PRN PRN (Reason: Asthma) RF: 0 epinephrine 0.3 MG syringe 0.3 mg IM X1 RF: 0 diphenhydramine HCl [Banophen] 25 MG capsule 25 mg PO BID PRN PRN (Reason: Itching) Qty: 20 RF: 0 paroxetine HCl 20 MG tablet 20 mg PO DAILY RF: 0 triamterene-hydrochlorothiazid [Maxzide-25mg] 1 EACH tablet 1 tab PO DAILY RF: 0 azelastine 1 SPRAY aerosol,spray 1 spray NASAL BID RF: 0 fluticasone propion-salmeterol [Advair Diskus] 1 EACH blister with device 1 ea IH BID RF: 0 bupropion HCl [Wellbutrin XL] 150 MG tablet extended release 24 hr 150 mg PO DAILY RF: 0 levocetirizine 5 MG tablet 5 mg PO DAILY RF: 0 meloxicam 15 MG tablet 15 mg PO DAILY RF: 0 lamotrigine 25 MG tablet 25 mg PO DAILY RF: 0 methocarbamol 750 MG tablet 750 mg PO BID RF: 0 gabapentin 300 MG capsule 300 mg PO TID RF: 0 ondansetron 4 MG tablet 4 mg PO Q6H PRN PRN (Reason: Nausea) Qty: 10 RF: 0 Primary Care Provider: Arnulfo Vaughn Referrals: Arnulfo Vaughn MD [Primary Care Provider] - Disposition Disposition: Home, Self Care
[2021-02-23 16:27] LABS: Absolute Lymphocyte Count 2.27 X10^3/uL (0.83-4.51); Basophil# 0.05 X10^3/uL; Basophil% 0.5 % (0-1); Eosinophil# 0.37 X10^3/uL; Eosinophils% 3.8 % (0-5); Hematocrit 45.1 % (37-47); Hemoglobin 14.9 g/dL (12.0-15.0); Lymphocyte # 2.27 X10^3/ul (0.83-4.51); Lymphocyte % 23.5 % (19-41); Mean Corpuscular Hgb 29.6 pg (27.0-32.0); Mean Corpuscular Volume 89.5 fL (81-99); Monocyte# 0.94 X10^3/uL; Monocyte% 9.7 % (0-10); NRBC Flagged by Analyzer 0 % (0-5); Neutrophil % 62.3 % (47-70); Platelet Count 287 K/mm3 (150-450); RBC Distribution Width CV 14.5 % (11.6-14.6); RBC Distribution Width SD 46.8 fl (35.1-43.9); Red Blood Count 5.04 M/mm3 (4.2-5.4); White Blood Count 9.7 K/mm3 (4.4-11.0)
[2021-02-23 16:33] LABS: International Normalized Ratio 1.1; Prothrombin Time (Protime)PT. 13.6 SECONDS (11.7-14.9)
[2021-02-23 16:34] LABS: Partial Thromboplast Time 32.8 Seconds (24.1-36.2)
[2021-02-23 16:41] LABS: Anion Gap 9 (5-15); BUN 9 mg/dL (7-18); BUN/Creat Ratio 14.6 RATIO (10-20); Calcium,Total 8.9 mg/dL (8.5-10.1); Chloride 103 mmol/L (98-107); Creatinine, Serum 0.62 mg/dL (0.55-1.02); EST Glomerular Filtration Rate 111 mL/min (>60); Est Glom Filt Rate - Afr Amer 135 mL/min (>60); Estimated Creatinine Clearance 91.58 ml/min; Glucose 101 mg/dL (74-106); Potassium 3.1 mmol/L (3.5-5.1); Sodium Level 139 mmol/L (136-145); Troponin-I HS 5 pg/mL (3.0-54.0)
[2021-02-23 16:51] LABS: Lactic Acid 1.3 mmol/L (0.4-1.9)
[2021-02-23 17:07] LABS: BNP,B-Type NATRIURETIC PEPTIDE 20.5 pg/mL (0-100)
--- NOTE | 2021-02-23 17:10 | CT_ITS ---
STUDY: CTA CHEST REASON FOR EXAM: Female, 45 years old. High pretest probability PE RADIATION DOSAGE (If Supplied By Facility): CTDIvol = ( 12.66 ) mGy, DLP = ( 505.32 ) mGycm TECHNIQUE: The examination was performed with the intravenous administration of IV 100mL Isovue-370. Post-processing of the angiographic images was performed, with multiplanar reformation and 3D reconstruction. Individualized dose optimization techniques were used for this CT. COMPARISON: None. FINDINGS: Heart size and pericardium are unremarkable. The aorta is normal in caliber. No aneurysm or dissection. There is no mediastinal mass or adenopathy. There is no hilar or axillary adenopathy. There is no evidence of pulmonary embolus. There is no pleural effusion. Fibroatelectatic changes in the left lower lobe. No demonstrated consolidation. Mild paraseptal emphysema. Small hiatal hernia. Prior gastric surgery. There is no osseous abnormality. CT/CTA Chest W/WO Contrast IMPRESSION: 1. No acute findings. No pulmonary embolism or arterial dissection. 2. Small hiatal hernia. Electronically Signed: Laura Caputo MD at 18:22 EDT Tel , Service support ,
[2021-02-23 18:11] VITALS: BP 129/85; O2SAT 96
[2021-02-23] MEDS: predniSONE 20 MG Tablet 60 MG PO (19:12)
[2021-02-23 19:17] VITALS: BP 129/85; PULSE 88; RESP 16; O2SAT 98
== END 2021-02-23 19:18 | disposition home or self-care (01) ==
PROVIDERS: Emergency Provider Emergency Medicine; PCP Internal Medicine
DX: R07.81 Pleurodynia (principal); K44.9 Diaphragmatic hernia without obstruction or gangrene; R06.00 Dyspnea, unspecified; E66.9 Obesity, unspecified; Z98.84 Bariatric surgery status; Z86.16 Personal history of COVID-19; M79.605 Pain in left leg; J45.909 Unspecified asthma, uncomplicated; R51.9 Headache, unspecified; R11.0 Nausea; Z79.1 Long term (current) use of non-steroidal anti-inflammatories (NSAID); Z79.51 Long term (current) use of inhaled steroids; Z79.52 Long term (current) use of systemic steroids
CPT/HCPCS: 71275; 80048; 83605; 83880; 84484; 85025; 85610; 85730; 87426; 93005; 99285; Q9967; A4216

== ENCOUNTER 2022-04-09 15:24 | Emergency (ER) | payer MEDICAID, SELFPAY ==
[2022-04-09 15:24] VITALS: BP 132/87; PULSE 98; RESP 14; TEMP 36.2; O2SAT 99; BMI 36.5
--- NOTE | 2022-04-09 15:58 | RAD_ITS ---
STUDY: XR Wrist Min 3 Views REASON FOR EXAM: Female, 46 years old. pain TECHNIQUE: XR Wrist Min 3 Views RIGHT COMPARISON: None FINDINGS: There are no acute findings of the visualized distal radius and ulna. There are no acute findings of the radiocarpal articulation. Normal distal radioulnar articulation. Normal carpal bones. Normal carpal articulations. There is degenerative arthrosis of the carpometacarpal articulation of the thumb. Normal second through fifth carpometacarpal articulations. There are no acute findings of the visualized metacarpal bones. The soft tissue structures are unremarkable. RAD/Wrist min 3 Views IMPRESSION: There is degenerative arthrosis of the carpometacarpal articulation of the thumb. Electronically Signed: Edinson Peacock MD at 16:11 EDT ,
[2022-04-09 16:33] VITALS: RESP 16
--- NOTE | 2022-04-09 16:40 | EX.ED.UPPERE ---
HPI History of Present Illness Chief Complaint: Upper Extremity Injury Narrative Narrative: 46-year-old female here with wrist pain after a box fell onto her wrist. States pain is constant, severe, without alleviating exacerbating features. Denies injury or history of surgery to the involved extremity. [facility] Medical History Cholecystectomy planned Home Medications omeprazole 20 mg capsule,delayed release 20 mg PO DAILY 03/21/15 [History Last Taken 09/30/16] albuterol sulfate 90 mcg/actuation aerosol inhaler (ProAir HFA) 1 puff inhalation Q4H PRN PRN Asthma 03/22/15 [History Last Taken 03/09/15 22:00] mometasone 50 mcg/actuation nasal spray (Nasonex) 1 spray DAILY PRN Allergies 03/22/15 [History Last Taken 03/19/15 22:00] epinephrine 0.3 mg/0.3 mL injection, auto-injector 0.3 mg IM X1 09/30/16 [History Last Taken Unknown] diphenhydramine HCl 25 mg capsule (Banophen) 25 mg PO BID PRN PRN Itching ##20 10/01/16 [Rx Last Taken Unknown] azelastine 137 mcg (0.1 %) nasal spray aerosol 1 spray BID 10/12/18 [History Last Taken Unknown] bupropion HCl 150 mg 24 hr tablet, extended release (Wellbutrin XL) 150 mg PO DAILY 10/12/18 [History Last Taken Unknown] fluticasone 100 mcg-salmeterol 50 mcg/dose blistr powdr for inhalation (Advair Diskus) 1 ea IH BID 10/12/18 [History Last Taken Unknown] levocetirizine 5 mg tablet 5 mg PO DAILY 10/12/18 [History Last Taken Unknown] paroxetine HCl 20 mg tablet 20 mg PO DAILY 10/12/18 [History Last Taken Unknown] triamterene 37.5 mg-hydrochlorothiazide 25 mg tablet (Maxzide-25mg) 1 tab PO DAILY 10/12/18 [History Last Taken Unknown] gabapentin 300 mg capsule 300 mg PO TID 11/30/19 [History Last Taken Unknown] lamotrigine 25 mg tablet 25 mg PO DAILY 11/30/19 [History Last Taken Unknown] meloxicam 15 mg tablet 15 mg PO DAILY 11/30/19 [History Last Taken Unknown] methocarbamol 750 mg tablet 750 mg PO BID 11/30/19 [History Last Taken Unknown] ondansetron 4 mg disintegrating tablet 4 mg PO Q6H PRN PRN Nausea #10 tabs 11/30/19 [Rx Last Taken Unknown] prednisone 20 mg tablet 60 mg PO DAILY #15 TABLETS 02/23/21 [Rx Last Taken Unknown] Allergy/AdvReac Type Severity Reaction Status Date / Time codeine Allergy Hives Verified 04/09/22 15:27 Penicillins Allergy Hives Verified 04/09/22 15:27 [place] Allergy Hives Uncoded 04/09/22 15:27 Surgical History Bariatric surgery status Social History (Updated 02/23/21 @ 16:[address] Goran Cheng MD) household members: spouse Smoking Status: Never smoker alcohol intake: current alcohol intake frequency: holidays/special occasions only substance use type: does not use ROS ROS ED ROS Narrative Constitutional: Denies fever HEENT: Denies sore throat Neck: Denies neck pain Cardiovascular: Denies chest pain, syncope Respiratory: Denies shortness of breath GI: Denies nausea vomiting or abdominal pain : Denies changes in urinary habits Musculoskeletal: Endorses wrist pain Neurologic: Denies numbness weakness or loss of sensation Skin denies rash EXAM Physical Exam Narrative Exam Narrative: Nursing triage notes reviewed, Vital signs reviewed Constitutional: please see mdm HENT: MMM Eyes: Pupils equal round and reactive to light, Extraocular muscles intact Neck: No stridor, no JVD, full neck ROM Lungs: Clear to auscultation, No wheezing or rales. No increased work of breathing, no conversational dyspnea, no accessory muscle use, no nasal flaring. No respiratory distress noted Heart: Regular rate and rhythm, No murmurs, No rubs and No gallops, 2+ distal pulses (radial, femoral, posterior tibial) in all extremities Abdomen: Soft, there is no tenderness, rigidity, rebound or guarding, no obvious peritoneal signs, no palpable pulsatile abdominal masses, no auscultated abdominal bruit : No CVAT Extremities: No edema, TTP over right wrist, no snuffbox tenderness. Neuro: Intact 5/5 strength with ok sign (median), intact finger abduction (ulnar) intact wrist extension (radial n). Intact sensation in the radial, ulnar, and median nerve distributions. Skin: No rash or lesions noted, no evidence of open fracture Const Vital Signs: 04/09/22 15:24 04/09/22 16:33 Temperature 97.1 F L Temperature Source Temporal Pulse Rate 98 Respiratory Rate 14 16 Blood Pressure 132/87 H Blood Pressure Mean 102 Pulse Ox 99 Oxygen Delivery Method Room Air MDM MDM MDM Narrative Medical decision making narrative: 46-year-old female here with wrist pain. Involved extremity neurovascular intact. No snuffbox tenderness. X-ray was obtained rule out fracture dislocation. x-rays unremarkable. Gave her a splint for comfort. Gave PCP follow-up. Radiography Diagnostic Testing: Clinical Impression(s) from Imaging Studies Wrist X-Ray 04/09/22 15:58 IMPRESSION: There is degenerative arthrosis of the carpometacarpal articulation of the thumb. Electronically Signed: Edinson Pecaock MD at 16:11 EDT Reading Location ID and State: [facility] / [place] , Service support , Discharge Plan Triage Chief Complaint: Upper Extremity Injury ED Provider: Aleksey Ayers Dx/Rx/DC Orders Clinical Impression: Acute wrist pain, Sprain of wrist Instructions: ED Wrist Sprain, ED RICE Prescriptions: No Action omeprazole 20 MG capsule 20 mg PO DAILY Label Comments: acid reflux mometasone [Nasonex] 1 SPRAY spray,non-aerosol 1 spray NASAL DAILY PRN (Reason: Allergies) Label Comments: allergies albuterol sulfate [ProAir HFA] 1 PUFF inhaler 1 puff inhalation Q4H PRN PRN (Reason: Asthma) Label Comments: breathing epinephrine 0.3 MG syringe 0.3 mg IM X1 Label Comments: allergic reaction diphenhydramine HCl [Banophen] 25 MG capsule 25 mg PO BID PRN PRN (Reason: Itching) Qty: 20 0RF Label Comments: allergy paroxetine HCl 20 MG tablet 20 mg PO DAILY triamterene-hydrochlorothiazid [Maxzide-25mg] 1 EACH tablet 1 tab PO DAILY azelastine 1 SPRAY aerosol,spray 1 spray NASAL BID fluticasone propion-salmeterol [Advair Diskus] 1 EACH blister with device 1 ea IH BID bupropion HCl [Wellbutrin XL] 150 MG tablet extended release 24 hr 150 mg PO DAILY levocetirizine 5 MG tablet 5 mg PO DAILY meloxicam 15 MG tablet 15 mg PO DAILY lamotrigine 25 MG tablet 25 mg PO DAILY methocarbamol 750 MG tablet 750 mg PO BID gabapentin 300 MG capsule 300 mg PO TID Rx Instructions: TAKE 2 WITH PM DOSE ondansetron 4 MG tablet 4 mg PO Q6H PRN PRN (Reason: Nausea) Qty: 10 0RF prednisone 20 MG tablet 60 mg PO DAILY Qty: 15 0RF Primary Care Provider: Arnulfo Vaughn Referrals: Arnuflo Vaughn MD [Primary Care Provider] - Activity Restrictions/Additional Instructions: Please take Tylenol, ibuprofen every 6 hours as needed for further pain control. Please wear your brace is much as possible for pain control and stabilization. Please follow with your primary care physician for outpatient reevaluation and further management. Disposition Disposition: Home, Self Care Discharge Date/Time: 04/09/22 16:58
== END 2022-04-09 16:58 | disposition home or self-care (01) ==
LOC: ED 16:48
PROVIDERS: Emergency Provider Emergency Medicine; PCP Internal Medicine; Visit Provider Emergency Medicine
DX: S63.90XA Sprain of unspecified part of unspecified wrist and hand, initial encounter (principal); W20.8XXA Other cause of strike by thrown, projected or falling object, initial encounter
CPT/HCPCS: 73110; 99283

== ENCOUNTER 2022-12-23 10:21 | Emergency (ER) | payer BC, MEDICAID, SELFPAY ==
[2022-12-23 10:22] VITALS: BP 137/89; PULSE 69; RESP 14; TEMP 36.1; O2SAT 98; BMI 39.9
--- NOTE | 2022-12-23 10:30 | EDS_ITS ---
HPI History of Present Illness Chief Complaint: Dizziness [facility] Medical History (Updated 12/23/22 @ 13:[address] Aleksey Ayers, DO) Cholecystectomy planned CORINNE (generalized anxiety disorder) GERD (gastroesophageal reflux disease) Iron deficiency anemia Home Medications omeprazole 20 mg capsule,delayed release 20 mg PO DAILY 03/21/15 [History Last Taken 09/30/16] albuterol sulfate 90 mcg/actuation aerosol inhaler (ProAir HFA) 1 puff inhalation Q4H PRN PRN Asthma 03/22/15 [History Last Taken 03/09/15 22:00] mometasone 50 mcg/actuation nasal spray (Nasonex) 1 spray DAILY PRN Allergies 03/22/15 [History Last Taken 03/19/15 22:00] epinephrine 0.3 mg/0.3 mL injection, auto-injector 0.3 mg IM X1 09/30/16 [History Last Taken Unknown] diphenhydramine HCl 25 mg capsule (Banophen) 25 mg PO BID PRN PRN Itching ##20 10/01/16 [Rx Last Taken Unknown] azelastine 137 mcg (0.1 %) nasal spray aerosol 1 spray BID 10/12/18 [History Last Taken Unknown] bupropion HCl 150 mg 24 hr tablet, extended release (Wellbutrin XL) 150 mg PO DAILY 10/12/18 [History Last Taken Unknown] fluticasone 100 mcg-salmeterol 50 mcg/dose blistr powdr for inhalation (Advair Diskus) 1 ea IH BID 10/12/18 [History Last Taken Unknown] levocetirizine 5 mg tablet 5 mg PO DAILY 10/12/18 [History Last Taken Unknown] paroxetine HCl 20 mg tablet 40 mg PO DAILY 10/12/18 [History Last Taken Unknown] triamterene 37.5 mg-hydrochlorothiazide 25 mg tablet (Maxzide-25mg) 1 tab PO DAILY 10/12/18 [History Last Taken Unknown] gabapentin 300 mg capsule 300 mg PO TID 11/30/19 [History Last Taken Unknown] lamotrigine 25 mg tablet 25 mg PO DAILY 11/30/19 [History Last Taken Unknown] meloxicam 15 mg tablet 15 mg PO DAILY 11/30/19 [History Last Taken Unknown] methocarbamol 750 mg tablet 500 mg PO BID 11/30/19 [History Last Taken Unknown] ondansetron 4 mg disintegrating tablet 4 mg PO Q6H PRN PRN Nausea #10 tabs 11/30/19 [Rx Last Taken Unknown] prednisone 20 mg tablet 60 mg (3 x 20 mg) PO DAILY #15 TABLETS 02/23/21 [Rx Last Taken Unknown] meclizine 25 mg tablet 25 mg PO 4X/DAY PRN PRN Dizziness #20 tabs 12/23/22 [Rx Last Taken Unknown] meclizine 25 mg tablet mg 12/23/22 [History Last Taken Unknown] Allergy/AdvReac Type Severity Reaction Status Date / Time chlorpheniramine Allergy Hives Verified 12/23/22 10:22 codeine Allergy Hives Verified 12/23/22 10:22 Penicillins Allergy Hives Verified 12/23/22 10:22 Surgical History (Updated 12/23/22 @ 11:04 by Josefa Kim) Bariatric surgery status History of spinal fusion Social History (Updated 02/23/21 @ 16:[address] Goran Cheng MD) household members: spouse Smoking Status: Never smoker alcohol intake: current alcohol intake frequency: holidays/special occasions only substance use type: does not use EXAM Physical Exam Const Vital Signs: 12/23/22 10:22 12/23/22 10:58 12/23/22 10:58 Temperature 97 F L Temperature Source Temporal Pulse Rate 69 Respiratory Rate 14 Respiratory Effort Normal Blood Pressure 137/89 H Blood Pressure Mean 105 Pulse Ox 98 Oxygen Delivery Method Room Air Room Air [facility] MDM MDM Narrative Medical decision making narrative: HISTORY OF PRESENT ILLNESS: 47-year-old female here with dizziness for 2 days. The patient further states her dizziness is associated with head motion. She notes has been warmer in her house over the last couple days because they do not have AC at this time. She states she also had 1 episode of nonbloody nonbilious vomitus 2 days ago. Denies any diarrhea. Denies any chest pain or palpitations. Denies any focal weakness, loss of vision, loss of sensation. No history of strokes. Notes history of hypertension and hyperlipidemia. Denies family history of CVA. She denies any headache. Denies any fever. REVIEW OF SYSTEMS: Pertinent positives: Dizziness Pertinent negatives: Focal numbness or weakness PHYSICAL EXAM: Nursing triage notes reviewed, Vital signs reviewed Constitutional: please see mdm HENT: MMM Eyes: Pupils equal round and reactive to light, Extraocular muscles intact Neck: No stridor, no JVD, full neck ROM Lungs: Clear to auscultation, No wheezing or rales. No increased work of breathing, no conversational dyspnea, no accessory muscle use, no nasal flaring. No respiratory distress noted Heart: Regular rate and rhythm, No murmurs, No rubs and No gallops, 2+ distal pulses (radial, femoral, posterior tibial) in all extremities Abdomen: Soft, there is no tenderness, rigidity, rebound or guarding, no obvious peritoneal signs, no palpable pulsatile abdominal masses, no auscultated abdominal bruit : No CVAT Extremities: No edema Neuro: Alert and oriented x3, neuro exam at baseline, cranial nerves II through XII are intact. No pain with extraocular muscle movement. There is negative test of skew. Normal speech. 5 of 5 strength in upper and lower extremities in flexion extension. Intact sensation to light touch in upper and lower extremity dermatomes. No truncal or extremity ataxia. No dysdiadochokinesia. Normal gait. 2+ reflexes. No meningeal signs. Negative Babinski. NIH of 0 Skin: No rash or lesions noted MEDICAL DECISION MAKING: Chief Complaint: Dizziness External records reviewed: Seen in November [address] scan of the head at that time showed no acute intracranial abnormality Factors affecting care: Hypertension Social determinants of health: none History obtained from others: The patient's daughter Consults: none ALL IMAGES (IF OBTAINED) HAVE BEEN PERSONALLY REVIEWED AND INTERPRETED BY CATHERINE QUINTERO. EKG with normal sinus rhythm, normal axis, normal intervals, no STEMI CBC without leukocytosis, severe anemia, no thrombocytopenia. BMP without evidence of significant electrolyte abnormalities, no anion gap, no acute kidney injury. Troponin is negative, no evidence of myocardial ischemia Urinalysis shows no evidence of urinary inflammation suggestive of UTI Urine test is negative [facility] Narrative: Patient was hemodynamically stable, afebrile, nontoxic. No focal neurologic deficits. Age of 1. No indication for code stroke activation, TNK or thrombectomy at this time. I considered the following differential diagnosis: CVA, peripheral vertigo, dehydration, ACS, arrhythmia, anemia, electrolyte abnormalities I obtained a broad lab and imaging work-up to further elucidate the etiology of the patient's complaints. CT scan of the head showed no evidence of bleed mass. This along with a NIH of 0 makes CVA or other life-threatening intracranial abnormality less likely. Labs without evidence of significant dehydration, acute kidney injury. EKG without arrhythmia or evidence of myocardial ischemia. Troponin was negative. There is no evidence of urine infection. I suspect the patient suffering peripheral vertigo given its exacerbation by head movement. Presentation could also be related to dehydration given recent vomiting and increased ambient temperature in the home She was given a dose of meclizine and instructions to continue take this at home for symptomatic control. I completed a structured, evidence-based clinical evaluation to screen for acute stroke and neurologic deficits in this patient. The patient has a normal detailed neurologic exam, which is highly sensitive for dangerous causes of dizziness, vertigo, or loss of balance. The evidence indicates that the patient is very low risk for an acute neurologic emergency and this is consistent with my clinical intuition. The risk of further workup or hospitalization is likely higher than the risk of the patient having a stroke or other dangerous neurologic condition. It is, therefore, in the patient?s best interest not to do additional emergent testing or to be hospitalized at this time. Shared Decision-Making I have discussed with the patient my clinical impression and the result of an evidence-based clinical evaluation to screen for stroke, as well as the risk of further testing and hospitalization. The evidence shows that the risk for stroke is less than 1%. Although the risk of stroke has not been completely eliminated, the risks of further testing or hospitalization likely exceed any potential benefit, and the patient agrees with not pursuing further emergent evaluation or hospitalization for stroke evaluation at this time. The patient and/or family, caregivers express understanding. The patient and/or family, caregivers agrees with the plan. Total critical care time today provided was at least 0 minutes. This excludes separately billable procedures. Critical care time (if documented) is secondary to the patient having high probability of clinically significant/life threatening deterioration in the patient's condition which required my urgent intervention. Lab Data Attestation: I reviewed the patient's lab results. Labs: Laboratory Results - last 24 hr 12/23/22 12/23/22 12/23/22 11:23 11:35 12:25 WBC 7.0 RBC 4.58 Hgb 14.1 Hct 41.0 MCV 89.5 MCH 30.8 MCHC 34.4 RDW Std Deviation 43.0 RDW Coeff of Rochelle 13.1 Plt Count 230 MPV 9.3 Immature Gran % (Auto) 0.100 Neut % (Auto) 56.7 Lymph % (Auto) 30.5 Sevier % (Auto) 5.9 Eos % (Auto) 5.7 H Baso % (Auto) 1.1 H Absolute Neuts (auto) 3.9 Absolute Lymphs (auto) 2.12 Nucleated RBC % 0 PT 13.2 INR 1.0 APTT 29.6 Sodium 139 Potassium 3.8 Chloride 110 H Carbon Dioxide 28.0 Anion Gap 1 L BUN 13 Creatinine 0.70 Estim Creat Clear Calc 75.78 Est GFR (MDRD) Af Amer 117 Est GFR (MDRD) Non-Af 96 BUN/Creatinine Ratio 18.7 Glucose 87 Calcium 8.8 Troponin I High Sens 3 Urine Color Yellow Urine Clarity Clear Urine pH 6.5 Ur Specific [place] 1.010 Urine Protein Negative Urine Glucose (UA) Normal Urine Ketones Negative Urine Occult Blood Negative Urine Nitrite Negative Urine Bilirubin Negative Urine Urobilinogen Normal Ur Leukocyte Esterase Negative Urine RBC 0 SEEN Urine WBC 0 SEEN Ur Squamous Epith Cells 0 SEEN Urine Bacteria 0 SEEN Urine Mucus 0 SEEN Urine Test Negative POC Glucose 86 Radiography Chest X-Ray - ED: Read by ED Physician Diagnostic Testing: Clinical Impression(s) from Imaging Studies Chest X-Ray 12/23/22 10:50 IMPRESSION: No acute abnormality is seen. Questionable hiatal hernia. Electronically Signed: Darshan Patton MD at 12:04 EDT , Brain CT 12/23/22 12:44 IMPRESSION: Mild degree of mucosal thickening of the ethmoid sinus and anterior right sphenoid sinus. Electronically Signed: Darshan Patton MD at 13:22 EDT , I have personally reviewed the patient's chest x-ray. Chest x-ray is unremarkable for pulmonary edema, pneumothorax, pneumonia or focal cardiopulmonary abnormality. Discharge Plan Triage Chief Complaint: Dizziness ED Provider: Aleksey Ayers Dx/Rx/DC Orders Clinical Impression: Peripheral vertigo Instructions: ED BPV Vertigo Prescriptions: New meclizine 25 mg tablet 25 mg PO 4X/DAY PRN PRN (Reason: Dizziness) Qty: 20 0RF No Action omeprazole 20 MG capsule 20 mg PO DAILY Patient Comments: acid reflux mometasone [Nasonex] 1 SPRAY spray,non-aerosol 1 spray NASAL DAILY PRN (Reason: Allergies) Patient Comments: allergies albuterol sulfate [ProAir HFA] 1 PUFF inhaler 1 puff inhalation Q4H PRN PRN (Reason: Asthma) Patient Comments: breathing epinephrine 0.3 MG syringe 0.3 mg IM X1 Patient Comments: allergic reaction diphenhydramine HCl [Banophen] 25 MG capsule 25 mg PO BID PRN PRN (Reason: Itching) Qty: 20 0RF Patient Comments: allergy paroxetine HCl 20 MG tablet 40 mg PO DAILY triamterene-hydrochlorothiazid [Maxzide-25mg] 1 EACH tablet 1 tab PO DAILY azelastine 1 SPRAY aerosol,spray 1 spray NASAL BID fluticasone propion-salmeterol [Advair Diskus] 1 EACH blister with device 1 ea IH BID bupropion HCl [Wellbutrin XL] 150 MG tablet extended release 24 hr 150 mg PO DAILY levocetirizine 5 MG tablet 5 mg PO DAILY meloxicam 15 MG tablet 15 mg PO DAILY lamotrigine 25 MG tablet 25 mg PO DAILY methocarbamol 750 MG tablet 500 mg PO BID gabapentin 300 MG capsule 300 mg PO TID Rx Instructions: TAKE 2 WITH PM DOSE ondansetron 4 MG tablet 4 mg PO Q6H PRN PRN (Reason: Nausea) Qty: 10 0RF prednisone 20 MG tablet 60 mg PO DAILY Qty: 15 0RF meclizine 25 mg tablet Patient Comments: TAKE 1 TABLET BY MOUTH THREE TIMES A DAY NEEDED FOR DIZZINESS FOR 14 DAYS Stand Alone Forms: ED Work / School Excuse Primary Care Provider: Arnulfo Vaughn Referrals: Arnulfo Vaughn MD [Primary Care Provider] - Activity Restrictions/Additional Instructions: Thank you for trusting us with your care today! Please take Tylenol (2 pills, 650 mg), ibuprofen (2 pills, 400 mg) every 6 hours as needed for pain and fever control. Please take meclizine as prescribed. Please return to the emergency department if your symptoms change or worsen. Please follow with your primary care physician for further outpatient evaluation and management. Disposition Disposition: Home, Self Care
--- NOTE | 2022-12-23 10:50 | RAD_ITS ---
STUDY: X-RAY CHEST REASON FOR EXAM: Female, 47 years old. Neuro deficit, acute, stroke suspected TECHNIQUE: Single AP portable view of the chest. COMPARISON: Comparison is made with prior study March 05, 2018. FINDINGS: EKG electrodes are seen. The lungs are clear and expanded. There is no demonstrated pleural abnormality. Normal size heart. Normal mediastinum and edgar. Normal visualized pulmonary arteries. Normal visualized aortic arch and descending thoracic aorta. Normal visualized thoracic spine. Normal visualized ribs, clavicles, and shoulders. Findings suggestive of a hiatal hernia. RAD/Chest 1 View IMPRESSION: No acute abnormality is seen. Questionable hiatal hernia. Electronically Signed: Darshan Patton MD at 12:04 EDT ,
--- NOTE | 2022-12-23 10:50 | EKG12_ITS ---
Test Reason : DIZZINESS Blood Pressure : / mmHG Vent. Rate : 064 BPM Atrial Rate : 064 BPM P-R Int : 162 ms QRS Dur : 078 ms QT Int : 406 ms P-R-T Axes : 070 023 052 degrees QTc Int : 418 ms Normal sinus rhythm Low voltage QRS Borderline ECG Confirmed by SOM MAC, WAYNE ([id number]), non linear editor JOSEPH NELSON ([id number]) on 12/25/2022 10:10:39 AM Referred By: Confirmed By:WAYNE KEARNS MD
[2022-12-23 11:41] LABS: Bedside Glucose 86 mg/dL (74-106)
[2022-12-23 11:47] LABS: Absolute Lymphocyte Count 2.12 X10^3/uL (0.83-4.51); Absolute Neutrophil Count 3.9 X10^3/uL (2.0-7.7); Basophil# 0.08 X10^3/uL; Basophil% 1.1 % (0-1); Eosinophils% 5.7 % (0-5); Hemoglobin 14.1 g/dL (12.0-15.0); Lymphocyte # 2.12 X10^3/ul (0.83-4.51); Lymphocyte % 30.5 % (19-41); Mean Corp Hgb Conc 34.4 g/dL (32-36); Mean Corpuscular Hgb 30.8 pg (27.0-32.0); Mean Corpuscular Volume 89.5 fL (81-99); Mean Platelet Vol. 9.3 fl (6.2-12.0); Monocyte# 0.41 X10^3/uL; Monocyte% 5.9 % (0-10); NRBC Flagged by Analyzer 0 % (0-5); Neutrophil # 3.94 X10^3/uL (2.7-7.7); Neutrophil % 56.7 % (47-70); Platelet Count 230 K/mm3 (150-450); RBC Distribution Width CV 13.1 % (11.6-14.6); Red Blood Count 4.58 M/mm3 (4.2-5.4)
[2022-12-23 11:58] LABS: Partial Thromboplast Time 29.6 Seconds (24.1-36.2); Prothrombin Time (Protime)PT. 13.2 SECONDS (11.7-14.9)
[2022-12-23 12:02] LABS: Anion Gap 1 (5-15); BUN 13 mg/dL (7-18); BUN/Creat Ratio 18.7 RATIO (10-20); Calcium,Total 8.8 mg/dL (8.5-10.1); Chloride 110 mmol/L (98-107); EST Glomerular Filtration Rate 96 mL/min (>60); Est Glom Filt Rate - Afr Amer 117 mL/min (>60); Estimated Creatinine Clearance 75.78 ml/min; Glucose 87 mg/dL (74-106); Potassium 3.8 mmol/L (3.5-5.1); Sodium Level 139 mmol/L (136-145); Troponin-I HS 3 pg/mL (3.0-54.0)
[2022-12-23 12:29] LABS: Bacteria 0 SEEN /hpf (None Seen); Mucous, Urine 0 SEEN /hpf (<or=2+); Red Blood Cells-Urine 0 SEEN /hpf (0-5); Squamous Epithelial Cells - UA 0 SEEN /hpf (5-10); White Blood Cells 0 SEEN /hpf (0-5)
--- NOTE | 2022-12-23 12:44 | CT_ITS ---
STUDY: CT BRAIN WITHOUT CONTRAST REASON FOR EXAM: Female, 47 years old. 2 day history of dizziness. RADIATION DOSAGE (If Supplied By Facility): CTDIvol = ( 44.99 ) mGy, DLP = ( 829.85 ) mGycm TECHNIQUE: Transaxial CT imaging of the brain was performed without administration of intravenous contrast material. Individualized dose optimization techniques were used for this CT. COMPARISON: Comparison is made with prior study dated November 30, 2019. FINDINGS: Normal soft tissue structures. Normal calvarium. Normal size ventricles and extra-axial spaces for the patient''s age. Normal white matter tracts of the cerebral hemispheres. Normal basal ganglia and thalami. Normal brainstem. Normal cerebellum. There is no intracranial hemorrhage. There are no findings of an acute ischemic infarction. Mild degree of mucosal thickening of the ethmoid sinuses bilaterally. Mild mucosal thickening along the anterior right sphenoid sinus. CT/Brain/Head without Contrast IMPRESSION: Mild degree of mucosal thickening of the ethmoid sinus and anterior right sphenoid sinus. Electronically Signed: Darshan Patton MD at 13:22 EDT ,
[2022-12-23 12:45] LABS: Internal QC Validated? YES +Cl - CLEAR BKGD; Pregnancy, Urine Negative Negative
[2022-12-23 12:48] LABS: Color, Urine Yellow (Yellow); Glucose, Dipstick Normal (Normal); Ketone-Dipstick Negative (Negative); Leukocyte Esterase-Dipstick Negative /ul (Negative); Nitrite-Dipstick Negative (Negative); Occult Blood-Urine Negative /ul (Negative); Protein-Dipstick Negative (Negative); Urine Bilirubin Dipstick Negative (Negative); Urine Clarity Clear (Clear); Urine Urobilinogen Normal (Normal); Urine pH 6.5 (5.0 - 8.0)
[2022-12-23 13:00] VITALS: BP 105/69; PULSE 55; RESP 16; O2SAT 99
[2022-12-23] MEDS: Meclizine HCl 25 MG Tablet PO (13:27)
[2022-12-23 13:46] VITALS: BP 105/69; PULSE 55; RESP 16; TEMP 36.1; O2SAT 99
== END 2022-12-23 14:00 | disposition home or self-care (01) ==
PROVIDERS: Emergency Provider Emergency Medicine; PCP Internal Medicine; Visit Provider Emergency Medicine
DX: H81.399 Other peripheral vertigo, unspecified ear (principal); E78.5 Hyperlipidemia, unspecified; I10 Essential (primary) hypertension; K21.9 Gastro-esophageal reflux disease without esophagitis; F41.1 Generalized anxiety disorder; Z79.899 Other long term (current) drug therapy
CPT/HCPCS: 70450; 71045; 80048; 81001; 81025; 82962; 84484; 85025; 85610; 85730; 93005; 99285; A4216